=== PATIENT | male | born 1990 | race Caucasian/White ===

== ENCOUNTER 2019-02-12 17:30 | Emergency (ER) | payer MEDICAID, OTHER ==
[~2019-02-12] VITALS: Ht 177.8 cm; Wt 80.7 kg
--- NOTE | 2019-02-12 17:47 | NUR ---
raven villanueva at bedside for mse.
--- NOTE | 2019-02-12 17:50 | NUR ---
Patient discharged to home in stable conditon. Written and verbal after care instructions given. Patient verbalizes understanding of instructions. All belongings w/ pt. pt self-ambulated w/o difficulty.
[2019-02-12 17:51] VITALS: BP 112/77
== END 2019-02-12 17:52 | disposition home or self-care (01) ==
LOC: ER 17:33
DX: S80.12XA Contusion of left lower leg, initial encounter (principal); V00.131A Fall from skateboard, initial encounter; Y93.51 Activity, roller skating (inline) and skateboarding; Y92.89 Other specified places as the place of occurrence of the external cause; Y99.8 Other external cause status
CPT/HCPCS: A4663

== ENCOUNTER 2021-10-01 14:36 | Emergency (ER) | payer OTHER ==
[~2021-10-01] VITALS: Ht 177.8 cm; Wt 74.8 kg
--- NOTE | 2021-10-01 14:50 | NUR ---
[email or web address], medical screening exam in progress
--- NOTE | 2021-10-01 15:11 | NUR ---
Patient discharged to home in stable condition, walking with his own crutches. Written and verbal after care instructions given. Patient verbalized understanding and compliance of instructions. Stressed follow up or return to ER for worsening s/s.
== END 2021-10-01 15:13 | disposition home or self-care (01) ==
LOC: ER 14:36
DX: S99.922A Unspecified injury of left foot, initial encounter (principal); V00.131A Fall from skateboard, initial encounter; Y93.51 Activity, roller skating (inline) and skateboarding; Y92.89 Other specified places as the place of occurrence of the external cause
CPT/HCPCS: 73650; A4663